=== PATIENT | male | born 1955 | race Caucasian/White ===

== ENCOUNTER 2020-12-01 12:00 | Emergency (ER) | payer OTHER ==
[~2020-12-01] VITALS: Ht 157.5 cm; Wt 81.6 kg
[2020-12-01 12:20] VITALS: BP 108/68
== END 2020-12-01 13:40 | disposition home or self-care (01) ==
LOC: ER 12:04
DX: U07.1 COVID-19 (principal); R05 Cough
CPT/HCPCS: 71045-TC

== ENCOUNTER 2021-04-14 14:13 | Emergency (ER) | payer OTHER ==
[~2021-04-14] VITALS: Ht 157.5 cm; Wt 90.7 kg
--- NOTE | 2021-04-14 14:13 | NUR ---
PT BIB SON C/O R FLANK PAIN STARTED THIS MORNING. PT IS AAOX4 [place]AN[place] SPEAKING ONLY, NOT IN RESPIRATORY DISTRESS, V/S STABLE, KEPT RESTED AND COMFORTABLE. WILL CONTINUE TO MONITOR.
--- NOTE | 2021-04-14 14:40 | NUR ---
AT BEDSIDE FOR EVAL.
[2021-04-14] MEDS ORDERED: ONDANSETRON HCL/PF 4 MG/2 ML VIAL ONE (14:44)
[2021-04-14] MEDS ORDERED: MORPHINE SULFATE INJ 4 MG/ML DISP.SYRIN ONE (14:45)
--- NOTE | 2021-04-14 14:48 | NUR ---
IV LINE ESTABLISHED BLOOD DRAWN ADN SENT TO LAB.
--- NOTE | 2021-04-14 14:58 | NUR ---
[facility] AT BEDSIDE FOR XRAY.
[2021-04-14] MEDS ORDERED: IV NS 0.9% 1,000 ML BAG IV ONE (15:00)
[2021-04-14] MEDS ORDERED: ONDANSETRON HCL/PF 4 MG/2 ML VIAL IVP ONE (15:00)
[2021-04-14] MEDS ORDERED: MORPHINE SULFATE INJ 2 MG/ML DISP.SYRIN IV ONE (15:00)
--- NOTE | 2021-04-14 15:00 | NUR ---
PT IS WHEELED TO CT SCAN VIA [facility].
[2021-04-14 15:02] LABS: BASOPHILS % (AUTO) 0.2 % (0.0-2.0); EOSINOPHILS % (AUTO) 0.4 % (0.0-6.0); HEMATOCRIT 46 % (39-51); HEMOGLOBIN 15.4 g/dL (13.5-17.5); LYMPHOCYTES # (AUTO) 12.8 /CMM (0.8-4.8); LYMPHOCYTES % (AUTO) 57.8 % (20.0-44.0); MEAN CORPUSCULAR HGB CONC 34 g/dl (31.0-36.0); MEAN CORPUSCULAR VOLUME 92 fL (80-96); MONOCYTES # (AUTO) 1.2 /CMM (0.1-1.30); MONOCYTES % (AUTO) 5.3 % (2.0-12.0); NEUTROPHILS % (AUTO) 36.3 % (43.0-81.0); PLATELET COUNT (AUTO) 255 /CMM (150-450); RED BLOOD CELL COUNT(AUTO) 4.96 MIL/uL (4.5-6.0); WHITE BLOOD COUNT (AUTO) 22.1 K/uL (4.3-11.0)
[2021-04-14 15:13] LABS: CALCIUM, SERUM 8.4 mg/dL (8.5-10.1); POTASSIUM 4.2 mmol/L (3.5-5.1)
[2021-04-14 15:19] LABS: ALBUMIN 3.2 g/dL (3.4-5.0); BILIRUBIN,DIRECT 0.1 mg/dL (0.0-0.2); BILIRUBIN,TOTAL 0.7 mg/dL (0.2-1.0); TOTAL PROTEIN, SERUM 7.3 g/dL (6.4-8.2)
--- NOTE | 2021-04-14 15:37 | NUR ---
URINE SPECIMEN COLLECTED AND SENT TO LAB.
[2021-04-14 15:49] LABS: BILIRUBIN,URINE Negative (NEGATIVE); COLOR,URINE YELLOW (YELLOW); LEUKOCYTE ESTERASE ,URINE Negative (NEGATIVE); NITRITE, URINE Negative (NEGATIVE); PROTEIN,URINE Negative (NEGATIVE); UGLUCOSE Negative (NEGATIVE); UROBILINOGEN,URINE 0.2 EU/dL (0.2)
[2021-04-14 16:11] LABS: BAND % (MANUAL) 3 % (0.0-5.0); NEUTROPHILS % (MANUAL) 38 (42-76)
[2021-04-14 16:12] LABS: MONOCYTES % (MANUAL) 3 % (0-11.0)
[2021-04-14 16:14] LABS: LYMPHOCYTES % (MANUAL) 56 % (16-48)
[2021-04-14] MEDS ORDERED: POLY17PO4 PO (16:45)
[2021-04-14] MEDS ORDERED: IBUP-1955 PO (16:45)
--- NOTE | 2021-04-14 17:00 | NUR ---
Patient discharged to home in stable condition. Written and verbal after care instructions given. Patient verbalizes understanding of instruction. IV removed. Catheter intact and site benign. Pressure and 4x4 applied to site. No bleeding noted.
[2021-04-14 17:01] VITALS: BP 128/78
== END 2021-04-14 17:01 | disposition home or self-care (01) ==
LOC: ER 14:15
DX: D72.829 Elevated white blood cell count, unspecified (principal); K59.00 Constipation, unspecified; N20.0 Calculus of kidney; K40.20 Bilateral inguinal hernia, without obstruction or gangrene, not specified as recurrent; K42.9 Umbilical hernia without obstruction or gangrene
CPT/HCPCS: 36415; 71045; 74176; 80048; 80076; 81003; 83690; 85007; 85025; 87086; 96361; 96374; 96375; 99285; J2270; J2405; J7030